=== PATIENT | female | born 1990 | race Caucasian/White ===

== ENCOUNTER 2016-08-29 18:21 | Emergency (ER) | payer OTHER ==
--- NOTE | ~2016-08-29 | EKG ---
PATIENT: CHANNING LEDEZMA UNIT #: [id number] Ventricular Rate: 81 BPM Atrial Rate: 81 BPM P-R Interval: 138 ms QRS Duration: 88 ms Q-T Interval: 358 ms QTC Calculation(Bezet): 415 ms P Royal: 46 degrees Calculated R Royal: 69 degrees Calculated T Royal: 56 degrees Diagnosis Line: Normal sinus rhythm Diagnosis Line: Normal ECG Diagnosis Line: When compared with ECG of 30-JUN-2015 17:42, Diagnosis Line: No significant change was found Diagnosis Line: Confirmed by LIN MELENDEZ MD ([id number]) on Diagnosis Line: 09/01/2016 9:01:36 AM INTERPRETING MD: AL TRAVIS
--- NOTE | ~2016-08-29 | CR63 ---
[facility] A Service of [facility] RADIOLOGY TEXT RESULTS PATIENT: CHANNING LEDEZMA LOCATION: SED : 88 UNIT #: [id number] AGE: [address]: Valencia Lubin MD SEX: F ORDER DR: [id number] [address] [address] [id number] E MR#: [id number] #: [id number] NAME: CHANNING LEDEZMA : 1990 SEX: F STUDY DATE/TIME: 08/29/2016 19:08 UNIT: SED ROOM: STUDY DESCRIPTION: CR Chest 2 View Attending Physician: Valencia Lubin M.D. Ordering Physician: Franck Ga M.D. Primary Care Physician: Yadeil Boyle Aprn MEDICAL IMAGING REPORT This report is preliminary unless electronic signature is present. EXAM Chest PA and lateral, 08/29/2016 HISTORY Chest pain, left hand numbness and tingling for 1 day. No known injury. FINDINGS PA and lateral examination of the chest upright shows a good expansion of the parenchyma with a normal distribution of the pulmonary vascularity. There is no indication of congestion, effusion, infiltrate, tumor, or nodular density. The pleural reflections and diaphragmatic contours are normal. The cardiac silhouette and mediastinal anatomy is within normal limits. IMPRESSION Normal chest. Dictated by... Joby Vasquez M.D. THIS IS AN ELECTRONICALLY VERIFIED REPORT Joby Vasquez M.D. at 08/30/2016 2:19 PM EUNICE/kristen TD: 08/30/2016 00:27 JOB #: [id number] MEDICAL IMAGING REPORT Page 1 of 1
[~2016-08-29 18:21] MED LIST: ALBUTEROL17 GM INH; ALPRAZOLAM PO; ALPRAZOLAM1 MG PO; AMOXICILLIN500 M1 PO; AUGMENTIN875 MG PO; AURALGAN OTIC S10 M1 AD; BENZONATATE PO; FLOXIN10 ML OT; GABAPENTIN400 M2 PO; GABAPENTIN400 MG PO; IBUPROFEN800 MG PO; METRONIDAZOLE PO; PRENATAL1 TA1 PO; VOLTAREN75 MG PO; WELLBUTRIN100 MG PO
[2016-08-29] MEDS ORDERED: [UNRECOGNIZED DRUG - REMARK] (18:38)
[2016-08-29] MEDS ORDERED: XANAX0.5 M1 (18:38)
== END 2016-08-29 20:06 | disposition home or self-care (01) ==
LOC: SED 18:21
DX: R07.89 Other chest pain (principal); F41.9 Anxiety disorder, unspecified; F17.200 Nicotine dependence, unspecified, uncomplicated; Z88.8 Allergy status to other drugs, medicaments and biological substances
CPT/HCPCS: 71020; 93005; 96372; 99284; J1885